=== PATIENT | male | born 1955 | race Hispanic/Latino ===

== ENCOUNTER 2017-12-23 11:05 | Emergency (ER) | payer MEDICARE ==
[2017-12-23 11:10] VITALS: BMI 23.0
--- NOTE | 2017-12-23 11:19 | ED PDOC ---
Arrival/HPI - General Time Seen by Provider: 12/23/17 11:14 Historian: Spouse, EMS - History of Present Illness Narrative History of Present Illness (Text): 12/23/17 11:14 This 62 yo male with a pmh dementia, traumatic head injury, stroke, pt has a peg tube, is brought by [facility] for medical evaluation. According to [facility], patient has been a passenger on a cruise. Patient 's called ambulance because patient did not want to leave his room from the cruise. stated patient believed he had left a pair of pants in his room. took him back to his room, check all closets, but patient still believes his pants were in the room and refused to leave. is concern of increased dementia or infection including cystitis. Patient and denied sob, cp, abdominal pain, urinary symptoms, headache, nausea, vomiting, weakness, paresthesias, skin rash, or other somatic complains. Time/Duration: Prior to Arrival Context: Other (Cruise) Past Medical History - Provider Review Nursing Documentation Reviewed: Yes Family/Social History - Physician Review Nursing Documentation Reviewed: Yes Family/Social History: Other (noncontributory) Allergies/Home Meds Allergies/Adverse Reactions: Allergies No Known Allergies Allergy (Verified 12/23/17 11:15) Home Medications: Home Meds Medication Instructions Recorded Confirmed Amantadine [Amantadine 100 mg Cap] 100 mg PO DAILY 12/23/17 12/23/17 Aspirin [Ecotrin] 81 mg PO DAILY 12/23/17 12/23/17 Donepezil HCl [Aricept] 5 mg PO DAILY 12/23/17 12/23/17 Famotidine [Pepcid] 20 mg PO DAILY 12/23/17 12/23/17 Fenofibrate [Triglide] 145 mg PO DAILY 12/23/17 12/23/17 Memantine [Namenda] 10 mg PO DAILY 12/23/17 12/23/17 Methylphenidate [Ritalin] 5 mg PO BID 12/23/17 12/23/17 lamoTRIgine [Lamictal] 200 mg PO BID 12/23/17 12/23/17 traZODone [Desyrel] 50 mg PO DAILY 12/23/17 12/23/17 Review of Systems - Review of Systems Systems not reviewed;Unavailable: Other (taken from BLS, and ) Constitutional: Normal. absent: Fatigue, Weight Change, Fevers, Night Sweats Eyes: Normal ENT: Normal Respiratory: Normal Cardiovascular: Normal Gastrointestinal: Normal Genitourinary Male: Normal Musculoskeletal: Normal Skin: Normal Neurological: Normal Endocrine: Normal Hemo/Lymphatic: Normal Psychiatric: Normal Physical Exam Vital Signs Temp Pulse Resp BP Pulse Ox 12/23/17 11:27 97.5 F L 54 L 18 136/73 99 Temperature: Afebrile Blood Pressure: Normal Pulse: Regular Respiratory Rate: Normal Appearance: Positive for: Well-Appearing, Non-Toxic, Comfortable Pain Distress: None Mental Status: Positive for: other (baseline) - Systems Exam Head: Present: Atraumatic, Normocephalic Pupils: Present: PERRL Extroacular Muscles: Present: EOMI Conjunctiva: Present: Normal Mouth: Present: Moist Mucous Membranes Neck: Present: Normal Range of Motion Respiratory/Chest: Present: Clear to Auscultation, Good Air Exchange. No: Respiratory Distress, Accessory Muscle Use Cardiovascular: Present: Regular Rate and Rhythm, Normal S1, S2. No: Murmurs Abdomen: Present: Normal Bowel Sounds, Feeding Tubes. No: Tenderness, Distention, Peritoneal Signs Back: Present: Normal Inspection Upper Extremity: Present: Normal Inspection. No: Cyanosis, Edema Lower Extremity: Present: Normal Inspection. No: Edema Neurological: Present: GCS=15, CN II-XII Intact, Other (baseline) Skin: Present: Warm, Dry, Normal Color. No: Rashes Psychiatric: Present: Alert, Normal Insight, Normal Concentration Medical Decision Making ED Course and Treatment: 12/23/17 13:35 Re-evaluation. Patient feels better. Discussed results and plan with patient and his who expresses understanding. All questions answered and there is agreement with the plan to discharge home with instructions. Patient stable for discharge. Return if symptoms persist or worsen. 12/23/17 13:35 requested Xanax in case patient becomes anxious. I recommended to have patient evaluated by his PMD and his Urologist. To review labs, CT head results, Urinalysis with his doctors. return to emergency if symptoms worsen. I reviewed the risk of taking Xanax with patient's , including respiratory depression. To be aware for any possibility of aspiration. understood recommendation. 12/23/17 13:38 I reviewed case with Dr. Dc Emergency department attending, who had recommended to add Troponin level. Troponiin was negative. on revaluation, patient felt better, no new symptoms during the Emergency department visit. Dr. Dc did not recommended a repeated Troponin since patient and denies sob, cp, león, orthopnea, or palpitation Re-evaluation Time: 13:35 Reassessment Condition: Re-examined, Improved - Lab Interpretations Lab Results: 12/23/17 11:23 12/23/17 11:23 Lab Results 12/23/17 11:53: Urine Color Yellow, Urine Appearance Sl cloudy, Urine pH 6.0, Ur Specific [place] 1.020, Urine Protein Negative, Urine Glucose (UA) Negative, Urine Ketones Negative, Urine Blood Negative, Urine Nitrate Negative, Urine Bilirubin Negative, Urine Urobilinogen 0.2, Ur Leukocyte Esterase Trace H, Urine RBC 0 - 2, Urine WBC 1 - 3, Ur Epithelial Cells 0 - 2, Urine Bacteria Many 12/23/17 11:50: pO2 43, VBG pH 7.33, VBG pCO2 58.0, VBG HCO3 30.6 H, VBG Total CO2 32.4 H, VBG O2 Sat (Calc) 81.1 H, VBG Base Excess 3.2 H, VBG Potassium 4.0, Glucose 93, Lactate 1.1, FiO2 21.0, Sodium 137.0, Chloride 103.0, Venous Blood Potassium 4.0 12/23/17 11:23: Lactate Dehydrogenase 490, Total Creatine Kinase 122, Troponin I < 0.01 12/23/17 11:23: PT 12.0, INR 1.04, APTT 36.6 H 12/23/17 11:23: Sodium 140, Potassium 4.1, Chloride 100, Carbon Dioxide 28, Anion Gap 18, BUN 10, Creatinine 1.1, Est GFR ( Amer) > 60, Est GFR (Non- Af Amer) > 60, Random Glucose 91, Calcium 10.0, Total Bilirubin 0.8, AST 33, ALT 34, Alkaline Phosphatase 61, Total Protein 8.0, Albumin 4.6, Globulin 3.4, Albumin/Globulin Ratio 1.3 12/23/17 11:23: WBC 3.6 L, RBC 5.42, Hgb 15.5, Hct 48.1, MCV 88.7, MCH 28.6, MCHC 32.2, RDW 16.5 H, Plt Count 146, MPV 11.1 H, Gran % 66.7, Lymph % (Auto) 21.7 L, Mccre[place] % (Auto) 9.3 H, Eos % (Auto) 2.3, Baso % (Auto) 0.0, Gran # 2.37, Lymph # 0.8 L, Mccreary # 0.3, Eos # 0.1, Baso # 0.00 I have reviewed the lab results: Yes Interpretation: No clinic. lab abnormalty - RAD Interpretation Narrative RAD Interpretations (Text): 12/23/17 12:35 PROCEDURE: CT HEAD WITHOUT CONTRAST. HISTORY: AMS COMPARISON: None available. TECHNIQUE: Axial computed tomography images were obtained through the head/brain without intravenous contrast. Radiation dose: Total exam DLP = 1121.75 mGy-cm. This CT exam was performed using one or more of the following dose reduction techniques: Automated exposure control, adjustment of the mA and/or kV according to patient size, and/or use of iterative reconstruction technique. FINDINGS: HEMORRHAGE: No intracranial hemorrhage. BRAIN: There is cystic encephalomalacia in the cerebellar hemispheres with ex vacuo dilatation of the 4th ventricle. There is also old infarction in the right medial occipital lobe. There is old infarction versus arachnoid cyst in the right anterior middle cranial fossae. There is also mild volume loss in the itz and midbrain. There is no mass, mass effect or abnormal extra-axial fluid collection. VENTRICLES: There is moderate ventricular dilatation slightly out of proportion to sulcal prominence. CALVARIUM: Status post left parietal craniectomy and duraplasty. PARANASAL SINUSES: Predominantly clear. MASTOID AIR CELLS: Predominantly clear. OTHER FINDINGS: None. IMPRESSION: 1. No acute intracranial abnormality. 2. Cystic encephalomalacia in the cerebellar hemisphere with ex vacuo dilatation of the 4th ventricle, sequela of remote infarctions. 3. Ventricular dilatation is slightly out of proportion to sulcal prominence and normal pressure hydrocephalus cannot be excluded. Clinical follow-up is advised. 12/23/17 13:38 Chest x-rays: NAD Radiology Orders: 12/23/17 11:39 CHEST ONE VIEW [RAD] Stat 12/23/17 11:40 HEAD W/O CONTRAST [CT] Stat - EKG Interpretation Interpreted by ED Physician: Yes (sinus bradycardia @ 53 bpm.) Type: 12 lead EKG Comparison: No previous EKG avail. - Medication Orders Current Medication Orders: Discontinued Medications Sodium Chloride (Sodium Chloride 0.9%) 500 mls @ 999 mls/hr IV .Q31M STA Stop: 12/23/17 12:14 Last Admin: 12/23/17 12:06 Dose: 999 mls/hr eMAR Start Stop Document 12/23/17 12:06 (Rec: 12/23/17 12:07 MR [id number]) Intravenous Solution Start Date 12/23/17 Start Time 12:06 End Date 12/23/17 End time 12:36 Total Infusion Time 30 Disposition/Present on Arrival - Present on Arrival Any Indicators Present on Arrival: No History of DVT/PE: No History of Uncontrolled Diabetes: No Urinary Catheter: No History of Decub. Ulcer: No - Disposition Have Diagnosis and Disposition been Completed?: Yes Diagnosis: Acute cystitis, Dementia Disposition: HOME/ ROUTINE Disposition Time: 13:39 Patient Plan: Discharge Condition: GOOD Discharge Instructions (ExitCare): Urinary Tract Infection in Men (ED) Additional Instructions: Call private private doctor, urologist, and neurologist for revaluation in 1-2 days. urine culture result will be available in 2-3 days, so review this result with your doctor. Return to emergency if symptoms worsen. Prescriptions: ALPRAZolam [Xanax] 0.25 mg PO TID PRN #6 tab PRN Reason: Anxiety Nitrofurantoin Macrocrystals [Macrobid] 100 mg PO BID #20 cap
[2017-12-23 11:43] VITALS: RESP 18; TEMP 97.5
[2017-12-23] MEDS ORDERED: Sodium Chloride 0.9% 500 ML IV STA (11:44)
[2017-12-23 12:02] LABS: ALB/GLOB RATIO 1.3 (1.1-1.8); ALBUMIN 4.6 g/dL (3.0-4.8); ALT/SGPT 34 U/L (7-56); AST/SGOT 33 U/L (17-59); BLOOD UREA NITROGEN 10 mg/dL (7-21); GFR AFRICAN-AMERICAN > 60; GFR NON-AFRICAN AMERICAN > 60
[2017-12-23 12:17] LABS: VENOUS BLOOD GAS BASE EXCESS 3.2 mmol/L (0.0-2.0); VENOUS BLOOD GAS PO2 43 mm/Hg (30-55); VENOUS BLOOD PH 7.33 (7.32-7.43)
[2017-12-23 12:19] LABS: EOS # 0.1 (0.0-0.7); EOS % 2.3 % (1.5-5.0); GRAN # 2.37 (1.4-6.5); GRAN % 66.7 % (50.0-68.0); HEMOGLOBIN 15.5 g/dL (14.0-18.0); LYMPH # 0.8 (1.2-3.4); LYMPH % 21.7 % (22.0-35.0); MEAN CELL VOLUME 88.7 fl (80.0-105.0); MEAN CORPUSCULAR HEMOGLOBIN 28.6 pg (25.0-35.0); MEAN CORPUSCULAR HGB CONC 32.2 g/dl (31.0-37.0); MEAN PLATELET VOLUME 11.1 fl (7.0-11.0); MONO # 0.3 (0.1-0.6); MONO % 9.3 % (1.0-6.0); RBC 5.42 10^6/uL (3.5-6.1); RED CELL DISTRIBUTION WIDTH 16.5 % (11.5-14.5); WHITE BLOOD COUNT 3.6 10^3/ul (4.5-11.0)
[2017-12-23 12:19] LABS: URINE BILIRUBIN NEGATIVE (NEGATIVE); URINE BLOOD NEGATIVE (NEGATIVE); URINE GLUCOSE (UA) NEGATIVE (NEGATIVE); URINE LEUKOCYTE ESTERASE TRACE Leu/uL (NEGATIVE); URINE NITRATE NEGATIVE (NEGATIVE); URINE PROTEIN NEGATIVE mg/dL (<30 mg/dL); URINE UROBILINOGEN 0.2 E.U./dL (<1 E.U./dL)
[2017-12-23 12:20] LABS: INR 1.04 (0.93-1.08); PARTIAL THROMBOPLASTIN TIME 36.6 Seconds (25.1-36.5)
[2017-12-23 12:20] LABS: URINE APPEARANCE SL CLOUDY (CLEAR); URINE COLOR YELLOW (YELLOW)
[2017-12-23 12:27] LABS: URINE BACTERIA MANY (NEG); URINE EPITHELIAL CELLS 0 - 2 /hpf (0-5); URINE RBC 0 - 2 /hpf (0-2)
--- NOTE | 2017-12-23 12:33 | CT ---
PROCEDURE: CT HEAD WITHOUT CONTRAST. HISTORY: AMS COMPARISON: None available. TECHNIQUE: Axial computed tomography images were obtained through the head/brain without intravenous contrast. Radiation dose: Total exam DLP = 1121.75 mGy-cm. This CT exam was performed using one or more of the following dose reduction techniques: Automated exposure control, adjustment of the mA and/or kV according to patient size, and/or use of iterative reconstruction technique. FINDINGS: HEMORRHAGE: No intracranial hemorrhage. BRAIN: There is cystic encephalomalacia in the cerebellar hemispheres with ex vacuo dilatation of the 4th ventricle. There is also old infarction in the right medial occipital lobe. There is old infarction versus arachnoid cyst in the right anterior middle cranial fossae. There is also mild volume loss in the itz and midbrain. There is no mass, mass effect or abnormal extra-axial fluid collection. VENTRICLES: There is moderate ventricular dilatation slightly out of proportion to sulcal prominence. CALVARIUM: Status post left parietal craniectomy and duraplasty. PARANASAL SINUSES: Predominantly clear. MASTOID AIR CELLS: Predominantly clear. OTHER FINDINGS: None. IMPRESSION: 1. No acute intracranial abnormality. 2. Cystic encephalomalacia in the cerebellar hemisphere with ex vacuo dilatation of the 4th ventricle, sequela of remote infarctions. 3. Ventricular dilatation is slightly out of proportion to sulcal prominence and normal pressure hydrocephalus cannot be excluded. Clinical follow-up is advised.
[2017-12-23 13:00] LABS: TROPONIN I < 0.01 ng/mL
[2017-12-23 14:00] VITALS: BP 142/87; PULSE 52; O2SAT 97
--- NOTE | 2017-12-23 14:26 | RAD ---
PROCEDURE: CHEST RADIOGRAPH, 1 VIEW HISTORY: Altered mental status COMPARISON: None available. FINDINGS: LUNGS: The lungs are clear. PLEURA: No pneumothorax or pleural fluid seen. CARDIOVASCULAR: Normal. OSSEOUS STRUCTURES: No significant abnormalities. VISUALIZED UPPER ABDOMEN: Normal. OTHER FINDINGS: There is elevation of the left hemidiaphragm. IMPRESSION: No acute findings.
--- NOTE | 2017-12-23 19:09 | CARD ---
APPROVED REPORT EKG Measurement Heart [id number] <Conclusion> Sinus bradycardia Left axis deviation Abnormal ECG
== END 2017-12-23 14:18 | disposition home or self-care (01) ==
LOC: ED 11:05
DX: N30.00 Acute cystitis without hematuria (principal); F03.90 Unspecified dementia, unspecified severity, without behavioral disturbance, psychotic disturbance, mood disturbance, and anxiety; Z86.73 Personal history of transient ischemic attack (TIA), and cerebral infarction without residual deficits
CPT/HCPCS: 70450; 71045; 80053; 81001; 82550; 82803; 83615; 84484; 85025; 85610; 85730; 87086; 93005; 99285; J7040